=== PATIENT | female | born 1950 | race African-American/Black ===

== ENCOUNTER → 2019-05-24 | Outpatient (CLI) | payer MEDICARE, OTHER | END | disposition home or self-care (01) | LOC: CFH 10:06 | DX: Z12.31 Encounter for screening mammogram for malignant neoplasm of breast (principal); N64.89 Other specified disorders of breast | CPT/HCPCS: 77067 ==

== ENCOUNTER → 2021-01-07 | Outpatient (CLI) | payer MEDICARE, OTHER ==
[2021-01-07 10:34] LABS: BASOPHILS % (AUTO) 1 % (0-1); EOSINOPHILS % (AUTO) 6 % (1-7); LYMPHOCYTES % (AUTO) 56 % (22-44); MEAN CORPUSCULAR HGB CONC 33.1 g/dL (32.4-35.8); MEAN PLATELET VOLUME 6.9 fL (7.4-10.4); MONOCYTES % (AUTO) 7 % (2-9); NEUTROPHILS % (AUTO) 30 % (42-75); PLATELET COUNT 250 x10^3/uL (130-400); RED CELL DISTRIBUTION WIDTH 13.7 % (9.6-15.2)
[2021-01-07 10:40] LABS: MICROSCOPIC NOT IND
[2021-01-07 10:47] LABS: ALBUMIN 3.9 g/dL (3.4-5.0); ANION GAP 5 mmol/L (5-15); CALCIUM 10.5 mg/dL (8.5-10.1); CHLORIDE 107 mmol/L (98-107); CHOLESTEROL, TOTAL 220 mg/dL (140-239); TRIGLYCERIDES 127 mg/dL (50-200); VLDL CHOLESTEROL 25 mg/dL (0-25)
[2021-01-07 10:57] LABS: % IRON SATURATION 25 % (20-55); ALANINE AMINOTRANSFERASE 29 U/L (12-78); ALKALINE PHOSPHATASE 91 U/L (45-117); BILIRUBIN, DIRECT 0.1 mg/dL (0.1-0.2); BILIRUBIN,INDIRECT 0.2 mg/dL (0.0-2.0); BILIRUBIN,TOTAL 0.3 mg/dL (0.2-1.0); CHOL/HDL RATIO 3.3; CREATININE 1.24 mg/dL (0.55-1.02); GAMMA GLUTAMYL TRANSPEPTIDASE 42 U/L (5-55); HDL CHOL % 30 % (28-40); HDL CHOLESTEROL (DIRECT) 67 mg/dL (40-60); IRON LEVEL 96 mcg/dL (50-170); LDL CHOLESTEROL,CALCULATED 128 mg/dL (54-169); LDL/HDL RATIO 1.9 (0.5-3.0); TOTAL IRON BINDING CAPACITY 379 mcg/dL (250-450); TOTAL PROTEIN 8.3 g/dL (6.4-8.2)
[2021-01-07 11:11] LABS: FREE T4 (FREE THYROXINE) 0.83 ng/dL (0.76-1.46)
== END | disposition home or self-care (01) ==
LOC: LAB 10:13
PROVIDERS: ATTEND Family Medicine
DX: Z01.89 Encounter for other specified special examinations (principal); E87.6 Hypokalemia; R73.03 Prediabetes; E89.0 Postprocedural hypothyroidism; N18.31 Chronic kidney disease, stage 3a; R94.5 Abnormal results of liver function studies
CPT/HCPCS: 36415; 80048; 80061; 80076; 81003; 82043; 82570; 82977; 83036; 83540; 83550; 84439; 84443; 85025; 86704; 86706; 86708; 86803; 87340

== ENCOUNTER 2021-01-20 09:03 | Outpatient (CLI) | payer MEDICARE, OTHER | END 2021-01-20 23:59 | disposition home or self-care (01) | LOC: CFH 09:03 | PROVIDERS: ATTEND Family Medicine | DX: K76.0 Fatty (change of) liver, not elsewhere classified (principal); N18.30 Chronic kidney disease, stage 3 unspecified; N28.1 Cyst of kidney, acquired; N26.1 Atrophy of kidney (terminal); R94.5 Abnormal results of liver function studies | CPT/HCPCS: 76700 ==